=== PATIENT | male | born 1985 | race African-American/Black ===

== ENCOUNTER 2016-03-13 10:25 | Emergency (ER) | payer MEDICARE, MEDICAID ==
[~2016-03-13] VITALS: Ht 274.3 cm; Wt 68.0 kg
[~2016-03-13 10:25] MED LIST: AUGMENTIN 875-1 EAC1 ORAL; AURALGAN OTIC1 DROP LEFT EAR; BACTRIM-DS1 EA ORAL; CIPRO PO; DOXYCYCLINE MO100 MG ORAL; IBUPROFEN600 MG ORAL; IBUPROFEN600 MG PO; IBUPROFEN800 MG ORAL; KEFLEX500 MG ORAL; NAPROSYN500 M1 ORAL; NKM; NORCO 5-325 TA1 EACH ORAL; NORCO 5-325 TA1 EACH PO; ROBAXIN500 MG PO; TRAMADOL HCL50 MG ORAL; VICODIN 5-5001 EACH PO
[2016-03-13] MEDS ORDERED: Bicillin LA 1.2 Million Units Syr IM ONE (11:15)
[2016-03-13] MEDS ORDERED: Azithromycin 250mg tab ORAL ONE (11:15)
[2016-03-13] MEDS ORDERED: DOXYCYCLINE MO100 MG ORAL (11:22)
[2016-03-13 11:59] VITALS: BP 134/89
--- NOTE | 2016-03-14 15:13 | Emergency Room Report ---
History of Present Illness General Chief Complaint: Male Urogenital Problems Source: Patient Present Illness HPI 31-year-old male presents ED complaining of pain and swelling to the left inguinal area times several months. Patient notes small nodular swelling to that area. Pain is throbbing, 3/10, nonradiating. No other aggravating or relieving factors. Denies fevers or chills. Denies nausea or vomiting. Denies dysuria hematuria. Denies discharge. Patient states he was here previously for the same presentation. Was given antibiotics and states his symptoms did resolve. Denies any other associated symptoms Allergies: Coded Allergies: No Known Allergies (Unverified , 11/19/11) Patient History Past Medical History: none Past Surgical History: none Pertinent Family History: none Social History: Denies: alcohol use, drug use, smoking Immunizations: UTD Reviewed Nursing Documentation: PMH: Agreed, PSxH: Agreed Nursing Documentation-PMH Past Medical History: No Stated History Hx Cardiac Problems: No - FRACTURED TIBIA 02/05/2010 Review of Systems All Other Systems: negative except mentioned in HPI Physical Exam Vital Signs Date Time Temp Pulse Resp B/P Pulse Ox O2 Delivery O2 Flow Rate FiO2 03/13/16 10:36 97.9 93 16 135/91 99 Room Air Sp02 EP Interpretation: reviewed, normal General Appearance: no apparent distress, alert, GCS 15, non-toxic Head: normocephalic, atraumatic Eyes: bilateral eye PERRL, bilateral eye normal inspection ENT: hearing grossly normal, normal pharynx, no angioedema, normal voice Neck: full range of motion, supple/symm/no masses Respiratory: chest non-tender, lungs clear, normal breath sounds, speaking full sentences Cardiovascular #1: regular rate, rhythm, no edema Cardiovascular #2: 2+ carotid (R), 2+ carotid (L), 2+ radial (R), 2+ radial (L) , 2+ dorsalis pedis (R), 2+ dorsalis pedis (L) Gastrointestinal: normal bowel sounds, non tender, soft, non-distended, no guarding, no rebound Rectal: deferred Genitourinary: normal inspection, no CVA tenderness Musculoskeletal: back normal, gait/station normal, normal range of motion, non- tender Neurologic: alert, oriented x3, responsive, motor strength/tone normal, sensory intact, speech normal Psychiatric: judgement/insight normal, memory normal, mood/affect normal, no suicidal/homicidal ideation Reflexes: 3+ bicep (R), 3+ bicep (L), 3+ tricep (R), 3+ tricep (L), 3+ knee (R) , 3+ knee (L) Skin: normal color, no rash, warm/dry, well hydrated Lymphatic: inguinal node tender (L) Medical Decision Making Diagnostic Impression: Primary Impression: Lymphadenopathy ER Course 31-year-old male presents ED with left inguinal area pain and swelling Differential-abscess, cellulitis, lymphadenopathy, hernia Patient placed on stretcher. After initial history, physical exam reveals a male in no acute distress. The swelling to left inguinal area is nodular, small. Does not pulse with cough. Unlikely hernia. patient is having no signs of nausea or vomiting, no signs of obstruction. I reviewed prior visit. Patient noted to have lymphadenopathy patient documented unprotected sexual history. Patient was given antibiotics and subsequently discharged States his symptoms did improve after antibiotics. We will treat in similar fashion Given penicillin G IM and azithromycin here in ED Diagnoses- lymphadenopathy stable and discharged to home with Rx Doxycycline. f/u PMD. return to ED if symptoms recur/worsen Last Vital Signs Date Time Temp Pulse Resp B/P Pulse Ox O2 Delivery O2 Flow Rate FiO2 03/13/16 11:59 97.5 90 16 134/89 98 Room Air Status: improved Disposition: HOME, SELF-CARE Condition: Stable Scripts Doxycycline Monohydrate* (DOXYCYCLINE MONOHYDRATE*) 100 Mg Capsule 100 MG ORAL Q12H, #14 CAP 0 Refills Prov: CODY SIM M.D. 03/13/16 Referrals: NOT CHOSEN [facility]/,REFERRING (PCP) Patient Instructions: Lymphadenopathy CODY SIM M.D. Mar 14, 2016 15:13
== END 2016-03-13 12:15 | disposition home or self-care (01) ==
LOC: EMR 11:25
DX: R59.1 Generalized enlarged lymph nodes (principal)
CPT/HCPCS: 96372; 99283; J0570; J0561

== ENCOUNTER 2016-09-30 13:00 | Emergency (ER) | payer MEDICAID, MEDICARE ==
[~2016-09-30] VITALS: Ht 175.3 cm; Wt 68.0 kg
[2016-09-30 13:28] VITALS: BP 121/85
[2016-09-30] MEDS ORDERED: IBUPROFEN600 MG ORAL (15:08)
--- NOTE | 2016-09-30 15:08 | Emergency Room Report ---
History of Present Illness General Chief Complaint: Upper Extremity Injury Source: Patient Present Illness HPI 31 YO male presents to the ED C/O slammed hand in car door 1 week ago, pain swelling base of the right thumb 8/10 in severity, pt is right hand dominant. pt. states he also hit same hand on wall on accident. denies bruises. reports intermittent tingling sensation radiating down to the index and middle finger of the right hand. denies skin color changes, or temperature changes. Denies numbness tingling or loss of sensation or gross motor movements of the extremities, incontinence of bowel or bladder. Denies CP, Palpitations, LOC, AMS , dizziness, Changes in Vision, Sensation, or a sudden severe headache. Allergies: Coded Allergies: No Known Allergies (Unverified , 11/19/11) Patient History Past Medical History: see triage record Past Surgical History: none Pertinent Family History: none Reviewed Nursing Documentation: PMH: Agreed, PSxH: Agreed Nursing Documentation-PMH Hx Cardiac Problems: No - FRACTURED TIBIA 02/05/2010 Review of Systems All Other Systems: negative except mentioned in HPI Physical Exam Vital Signs Date Time Temp Pulse Resp B/P Pulse Ox O2 Delivery O2 Flow Rate FiO2 09/30/16 13:14 97.7 83 15 118/82 98 Room Air Medical Decision Making PA Attestation Dr. Toth is my supervising Physician whom patient management has been discussed with. Diagnostic Impression: Primary Impression: Contusion of hand Qualified Codes: S60.221A - Contusion of right hand, initial encounter Additional Impression: Sprain of right thumb Qualified Codes: S63.601A - Unspecified sprain of right thumb, initial encounter ER Course 31 YO male presents to the ED C/O slammed hand in car door 1 week ago, pain swelling base of the right thumb 8/10 in severity, pt is right hand dominant. pt. states he also hit same hand on wall on accident. denies bruises. reports intermittent tingling sensation radiating down to the index and middle finger of the right hand. denies skin color changes, or temperature changes. Denies numbness tingling or loss of sensation or gross motor movements of the extremities, incontinence of bowel or bladder. Denies CP, Palpitations, LOC, AMS , dizziness, Changes in Vision, Sensation, or a sudden severe headache. Ddx considered but are not limited to Fracture, dislocation, contusion, Sprain/ Strain/Spasm, tendonitis. Vital signs: are WNL, pt. is afebrile H&PE are most consistent with musculoskeletal injury will perform imaging to r/ o fractures/dislocations. ORDERS: - X-ray Right hand 3 views - negative for fx, Dislocation, or significant soft tissue injury, per preliminary read in ED by Dr. Lovelace - interpretation is scribed by PA. ED INTERVENTIONS: - Motrin PO - Thumb Spica Splint applied to the right hand by avionics electronics technician. Pt. remains neurovascularly intact. DISCHARGE: At this time pt. is stable for d/c to home. Will provide printed patient care instructions, and any necessary prescriptions. Care plan and follow up instructions have been discussed with the patient prior to discharge. Last Vital Signs Date Time Temp Pulse Resp B/P Pulse Ox O2 Delivery O2 Flow Rate FiO2 09/30/16 14:09 97.8 09/30/16 13:28 79 14 121/85 99 Room Air Disposition: HOME, SELF-CARE Condition: Stable Scripts Ibuprofen* (MOTRIN*) 600 Mg Tablet 600 MG ORAL THREE TIMES A DAY, #30 TAB 0 Refills Prov: Ratna Montemayor 09/30/16 Referrals: NON PHYSICIAN (PCP) Patient Instructions: Thumb Sprain Additional Instructions: Take medications as directed. Follow up with a Primary Care Provider in 3-5 days, even if your symptoms have resolved. --Please review list of primary care clinics, if you do not already have a primary care provider Return sooner to ED if new symptoms occur, or current symptoms become worse. - Please note that this Emergency Department Report was dictated using [employer] technology software, occasionally this can lead to erroneous entry secondary to interpretation by the dictation equipment. Ratna Montemayor Sep 30, 2016 15:08
[2016-09-30 15:24] VITALS: BP 120/82
--- NOTE | 2016-10-01 11:40 | Diagnostic Imaging Report ---
Indication: pain Findings: 3 views of the right hand were obtained. Normal bony mineralization and alignment are demonstrated. No acute fractures, erosions, or periosteal reaction are seen. Soft tissues are unremarkable. Impression: Negative examination of the right hand.
== END 2016-09-30 15:27 | disposition home or self-care (01) ==
LOC: EMR 14:09
DX: S60.221A Contusion of right hand, initial encounter (principal); S63.601A Unspecified sprain of right thumb, initial encounter; W22.01XA Walked into wall, initial encounter; Y92.89 Other specified places as the place of occurrence of the external cause
CPT/HCPCS: 29260; 99283

== ENCOUNTER 2017-07-12 13:54 | Emergency (ER) | payer MEDICAID ==
[~2017-07-12] VITALS: Ht 175.3 cm; Wt 70.3 kg
[2017-07-12 14:40] VITALS: BP 126/87
--- NOTE | 2017-07-12 14:58 | Emergency Room Report ---
History of Present Illness General Chief Complaint: Pelvic Pain Source: Patient Present Illness HPI 32-year-old male presents ED complaining of inguinal pain times one week. Notes left lower inguinal area. Notes a bulge when he stands up. Pain is dull , 8 out of 10, nonradiating. Denies any nausea or vomiting. Patient is passing flatus, passing stool. No other aggravating or relieving factors. Denies any other associated symptoms Allergies: Coded Allergies: No Known Allergies (Unverified , 11/19/11) Patient History Past Medical History: none Past Surgical History: none Pertinent Family History: none Social History: Denies: smoking, alcohol use, drug use Immunizations: UTD Reviewed Nursing Documentation: PMH: Agreed; PSxH: Agreed Nursing Documentation-PMH Past Medical History: No History, Except For Hx Cardiac Problems: No - FRACTURED TIBIA 02/05/2010 Review of Systems All Other Systems: negative except mentioned in HPI Physical Exam Vital Signs Date Time Temp Pulse Resp B/P (MAP) Pulse Ox O2 Delivery O2 Flow Rate FiO2 07/12/17 14:02 97.9 90 18 126/87 100 Room Air 97.9 Sp02 EP Interpretation: reviewed, normal General Appearance: no apparent distress, alert, GCS 15, non-toxic Head: normocephalic, atraumatic Eyes: bilateral eye normal inspection, bilateral eye PERRL ENT: hearing grossly normal, normal pharynx, no angioedema, normal voice Neck: full range of motion, supple/symm/no masses Respiratory: chest non-tender, lungs clear, normal breath sounds, speaking full sentences Cardiovascular #1: regular rate, rhythm, no edema Cardiovascular #2: 2+ carotid (R), 2+ carotid (L), 2+ radial (R), 2+ radial (L) , 2+ dorsalis pedis (R), 2+ dorsalis pedis (L) Gastrointestinal: normal bowel sounds, soft, non-distended, no guarding, no rebound, other - L inguinal hernia, reducible, no incarceration Rectal: deferred Genitourinary: normal inspection, no CVA tenderness Musculoskeletal: back normal, gait/station normal, normal range of motion, non- tender Neurologic: alert, oriented x3, responsive, motor strength/tone normal, sensory intact, speech normal Psychiatric: judgement/insight normal, memory normal, mood/affect normal, no suicidal/homicidal ideation Reflexes: 3+ bicep (R), 3+ bicep (L), 3+ tricep (R), 3+ tricep (L), 3+ knee (R) , 3+ knee (L) Skin: normal color, no rash, warm/dry, well hydrated Lymphatic: no adenopathy Medical Decision Making Diagnostic Impression: Primary Impression: Hernia ER Course Hospital Course 32-year-old M presents to ED with abdominal pain Differential diagnosis includes-appendicitis, cholecystitis, small bowel obstruction, gastritis, Clinical course Patient placed on stretcher. After initial history, physical exam reveals male in no acute distress. On exam patient is standing up, there is a swelling to the left lower inguinal area. No induration. No erythema. Consistent with hernia. Reducible. No scrotal pain. When patient laying flat the swelling resolves. Consistent with a reducible hernia Discussed findings with the patient. I do not believe imaging or workup required at this time. I will provide surgical referral. Patient is safe for discharge. Patient agrees with plan I feel this is a highly complex case requiring extensive working including EKG/ Rhythm strip, Xray/CT/US, Blood/urine lab work, repeat exams while in ED, and administration of strong opiates/narcotics for pain control, admission to hospital or close patient follow up. Diagnosis - hernia Stable and discharged to home. Followup with PMD/surgery. Return to ED if symptoms recur or worsen Last Vital Signs Date Time Temp Pulse Resp B/P (MAP) Pulse Ox O2 Delivery O2 Flow Rate FiO2 07/12/17 14:40 97.9 18 126/87 100 Room Air 97.9 07/12/17 14:02 90 Status: unchanged Disposition: HOME, SELF-CARE Condition: Stable Referrals: Oziel Crowley Patient Instructions: Hernia, Adult, [id number] Bruce Bustamante MD Jul 12, 2017 14:58
== END 2017-07-12 14:40 | disposition home or self-care (01) ==
LOC: EMR 14:33
DX: K40.90 Unilateral inguinal hernia, without obstruction or gangrene, not specified as recurrent (principal)
CPT/HCPCS: 99282

== ENCOUNTER 2019-06-19 05:37 | Emergency (ER) | payer MEDICAID ==
[~2019-06-19] VITALS: Ht 175.3 cm; Wt 70.3 kg
--- NOTE | 2019-06-19 05:40 | NUR ---
ED Nurse Note: pt called for, not in waiting room
--- NOTE | 2019-06-19 06:00 | NUR ---
ED Nurse Note: Walk-in patient with complaints of abscess at sacrum. Patient is unable to sit and reports 10/10 pain in the area. Will continue to monitor for impending orders.
[2019-06-19 06:01] VITALS: BP 156/98
[2019-06-19] MEDS ORDERED: NORCO 5-325 TA1 EAC1 ORAL (06:39)
[2019-06-19] MEDS ORDERED: BACTRIM DS TAB1 EAC1 ORAL (06:39)
[2019-06-19] MEDS ORDERED: ANUSOL-HC30 GM RC (06:39)
[2019-06-19] MEDS ORDERED: COLACE100 MG ORAL (06:39)
[2019-06-19] MEDS ORDERED: CEPHALEXIN500 MG ORAL (06:39)
--- NOTE | 2019-06-19 06:53 | Emergency Room Report ---
History of Present Illness General Chief Complaint: Skin Rash/Abscess Source: Patient Present Illness HPI Patient presents with complaints of discomfort in the buttock area on the right side reports that he felt an uncomfortable area for the past 2 to 3 days Denies any fevers or chills patient having normal bowel movements denies any discomfort with bowel movements Denies any discharge Denies any other abdominal pain Patient has had frequent infections in that region before Allergies: Coded Allergies: No Known Allergies (Unverified , 11/19/11) COVID-19 Screening Contact w/high risk pt: No Recent Travel to affected area: No Experienced COVID-19 symptoms?: No Patient History Past Medical History: see triage record Reviewed Nursing Documentation: PMH: Agreed; PSxH: Agreed Nursing Documentation-PMH Past Medical History: No History, Except For Hx Cardiac Problems: No - FRACTURED TIBIA 02/05/2010 Review of Systems All Other Systems: negative except mentioned in HPI Physical Exam Vital Signs Date Time Temp Pulse Resp B/P (MAP) Pulse Ox O2 Delivery O2 Flow Rate FiO2 06/19/19 05:41 98.2 91 20 156/98 (117) 95 Room Air Sp02 EP Interpretation: reviewed, normal General Appearance: well appearing, no apparent distress Head: normocephalic, atraumatic Eyes: bilateral eye PERRL, bilateral eye EOMI ENT: hearing grossly normal, EOM grossly intact Neck: supple Respiratory: lungs clear Cardiovascular #1: regular rate, rhythm Gastrointestinal: non tender, soft Rectal: other - Small pea-sized palpable folliculitis right medial buttock area approximately 1 cm lateral to the rectal region, does not appear to show any tracking, no obvious fissures Musculoskeletal: normal inspection Neurologic: alert, oriented x3 Skin: other - As above Lymphatic: no adenopathy Medical Decision Making Diagnostic Impression: Primary Impression: Folliculitis ER Course The area in question is fairly small in nature multiple differentials do include but not limited to Perirectal abscess, fissures and fistulas The exam today is not consistent with this there Is a small palpable folliculitis region noted as above patient will require soaking initial antibiotic coverage and will return with any change in condition Last Vital Signs Date Time Temp Pulse Resp B/P (MAP) Pulse Ox O2 Delivery O2 Flow Rate FiO2 06/19/19 06:01 98.2 87 20 156/98 95 Room Air Status: improved Disposition: HOME, SELF-CARE Condition: Improved Scripts Hydrocodone Bit/Acetaminophen 5-325* (NORCO 5-325 TABLET*) 1 Each Tablet 1 TAB ORAL Q6H PRN for FOR PAIN, #10 TAB 0 Refills Prov: Isa Carrillo DO 06/19/19 Docusate Sodium* (COLACE*) 100 Mg Capsule 100 MG ORAL THREE TIMES A DAY for 10 Days, CAP Prov: Isa Carrillo DO 06/19/19 Trimethoprim/Sulfamethoxazole 160/800* (BACTRIM DS TABLET*) 1 Each Tablet 1 TAB ORAL Q12H, #14 TAB 0 Refills Prov: Isa Carrillo DO 06/19/19 Cephalexin* (KEFLEX*) 500 Mg Capsule 500 MG ORAL EVERY 6 HOURS for 7 Days, CAP Prov: Isa Carrillo DO 06/19/19 Hydrocortisone Hc 2.5% Cream (ANUSOL-HC 2.5% CREAM) Y Cr 1 GM RC BID for 10 Days, GM Prov: Isa Carrillo DO 06/19/19 Referrals: [facility],REFERRING (PCP) [facility] [place] Patient Instructions: Folliculitis Additional Instructions: Patient is provided with the discharge instructions notified to follow up with primary doctor in the next 2-3 days otherwise return to the er with any worsening symptoms. Please note that this report is being documented using [employer] technology. This can lead to erroneous entry secondary to incorrect interpretation by the dictating instrument. Isa Carrillo DO June 19, 2019 06:53
--- NOTE | 2019-06-19 06:58 | NUR ---
ER DISCHARGE NOTE: Patient is cleared to be discharged per ERMD, pt is aox4, on room air, with stable vital signs. pt was given dc and prescription instructions, pt was able to verbalize understanding, pt id band removed . pt is able to ambulate with steady gait. patient tolerated medication administration well prior ro departure and took all belongings.
[2019-06-19 07:00] VITALS: BP 156/98
[2019-06-19] MEDS ORDERED: HYDROcodone/Acetamin 5/325 tab ORAL ONE (07:00)
== END 2019-06-19 07:02 | disposition home or self-care (01) ==
LOC: EMR 06:25
DX: L73.9 Follicular disorder, unspecified (principal)
CPT/HCPCS: 99282